=== PATIENT | male | born 1935 | race Caucasian/White ===

== ENCOUNTER 2017-08-21 20:34 | Emergency (ER) | payer MEDICARE, BC ==
[2017-08-21 20:46] VITALS: BP 203/100
--- NOTE | 2017-08-21 22:19 | EDM.PDOC ---
ED HPI GENERAL MEDICAL PROBLEM - General Chief Complaint: Cardiovascular Problem Stated Complaint: High BP Time Seen by Provider: 08/21/17 21:10 Source of Information: Reports: Patient, RN Notes Reviewed History Limitations: Reports: No Limitations - History of Present Illness INITIAL COMMENTS - FREE TEXT/NARRATIVE: 81 year old male presents to the ED today with concerns of high blood pressure. He has a history of hypertension but says he's been off medications for about 3 years. He says his htn was mild and required "a low dose" of medication. His BP normally runs around 140/70. Today, he's noticed his BP has been 160-190s over 70-80s. He denies headache, vision changes, chest pain, shortness of breath, lower extremity edema. For the past week, he has been experiencing rectal discomfort. He has a history of recurrent prostatitis and feels he is having a flare. He has been on ciprofloxacin for this in the past but says he experiencing severe GI side effects with this. The patient reports that he was initially evaluated in the walk-in clinic. He says they attempted to get him in with Dr. Ferreira but were unable to. He was instructed to come to the ED if his BP remains elevated. They did not treat his prostatitis. - Related Data Allergies Allergy/AdvReac Type Severity Reaction Status Date / Time No Known Allergies Allergy Verified 08/21/17 20:40 Home Meds: Home Meds Amoxicillin 500 mg PO TID #40 capsule 08/21/17 [Rx] Past Medical History Cardiovascular History: Reports: Hypertension Genitourinary History: Reports: Other (See Below) Other Genitourinary History: chronic prostatitis Social & Family History - Tobacco Use Smoking Status *Q: Never Smoker - Recreational Drug Use Recreational Drug Use: No ED ROS GENERAL - Review of Systems Review Of Systems: See Below Constitutional: Reports: No Symptoms. Denies: Fever, Chills, Diaphoresis HEENT: Reports: No Symptoms. Denies: Eye Pain, Vertigo, Vision Change Respiratory: Reports: No Symptoms. Denies: Shortness of Breath, Cough Cardiovascular: Reports: Blood Pressure Problem. Denies: Chest Pain, Dyspnea on Exertion, Edema, Lightheadedness, Palpitations GI/Abdominal: Reports: No Symptoms. Denies: Abdominal Pain, Nausea, Vomiting Neurological: Reports: No Symptoms. Denies: Confusion, Dizziness, Headache ED EXAM, GENERAL - Physical Exam Exam: See Below Exam Limited By: No Limitations General Appearance: Alert, WD/WN, No Apparent Distress Eye Exam: Bilateral Eye: EOMI, Normal Inspection, PERRL Respiratory/Chest: No Respiratory Distress, Lungs Clear, Normal Breath Sounds, No Accessory Muscle Use, Chest Non-Tender Cardiovascular: Normal Peripheral Pulses, Regular Rate, Rhythm, No Murmur GI/Abdominal: Normal Bowel Sounds, Soft, Non-Tender Extremities: Normal Inspection, Normal Range of Motion, Non-Tender, No Pedal Edema Neurological: Alert, Oriented, Normal Cognition, Normal Gait, No Motor/Sensory Deficits Skin Exam: Warm, Dry, Intact Course - Vital Signs Last Recorded V/S: Last Vital Signs Temp 97.3 F 08/21/17 20:41 Pulse 74 08/21/17 20:41 Resp 17 08/21/17 20:41 BP 203/100 H 08/21/17 20:41 Pulse Ox 100 08/21/17 20:41 - Orders/Labs/Meds Labs: Laboratory Tests 08/21/17 08/21/17 08/21/17 Range/Units 21:21 21:34 21:34 WBC 8.21 (4.23-9.07) K/mm3 RBC 5.07 (4.63-6.08) M/mm3 Hgb 14.8 (13.7-17.5) gm/L Hct 44.5 (40.1-51.0) % MCV 87.8 (79.0-92.2) fl MCH 29.2 (25.7-32.2) pg MCHC 33.3 (32.2-35.5) g/dl RDW Std Deviation 45.9 H (35.1-43.9) fL Plt Count 183 (163-337) K/mm3 MPV 9.7 (9.4-12.3) fl Neut % (Auto) 61.3 (34.0-67.9) % Lymph % (Auto) 26.4 (21.8-53.1) % Pershing % (Auto) 8.3 (5.3-12.2) % Eos % (Auto) 3.4 (0.8-7.0) Baso % (Auto) 0.5 (0.1-1.2) % Neut # (Auto) 5.03 (1.78-5.38) K/mm3 Lymph # (Auto) 2.17 (1.32-3.57) K/mm3 Pershing # (Auto) 0.68 (0.30-0.82) K/mm3 Eos # (Auto) 0.28 (0.04-0.54) K/mm3 Baso # (Auto) 0.04 (0.01-0.08) K/mm3 Sodium 143 (136-145) mEq/L Potassium 3.4 L (3.5-5.1) mEq/L Chloride 104 (98-107) mEq/L Carbon Dioxide 30 (21-32) mEq/L Anion Gap 12.4 (5-15) BUN 20 H (7-18) mg/dL Creatinine 1.1 (0.7-1.3) mg/dL Est Cr Clr Drug Dosing 50.08 mL/min Estimated GFR (MDRD) > 60 (>60) mL/min BUN/Creatinine Ratio 18.2 H (14-18) Glucose 104 (83-115) mg/dL Calcium 9.8 (8.5-10.1) mg/dL Total Bilirubin 0.9 (0.2-1.0) mg/dL AST 28 (15-37) U/L ALT 28 (16-63) U/L Alkaline Phosphatase 60 (46-116) U/L Total Protein 7.6 (6.4-8.2) g/dl Albumin 4.2 (3.4-5.0) g/dl Globulin 3.4 gm/dL Albumin/Globulin Ratio 1.2 (1-2) Urine Color Yellow (Yellow) Urine Appearance Clear (Clear) Urine pH 7.5 (5.0-8.0) Ur Specific [place] 1.020 (1.005-1.030) Urine Protein Negative (Negative) Urine Glucose (UA) Negative (Negative) Urine Ketones Negative (Negative) Urine Occult Blood Negative (Negative) Urine Nitrite Negative (Negative) Urine Bilirubin Negative (Negative) Urine Urobilinogen 0.2 (0.2-1.0) Ur Leukocyte Esterase Negative (Negative) Urine RBC Not seen (0-5) /hpf Urine WBC Not seen (0-5) /hpf Ur Epithelial Cells 0-5 (0-5) /hpf Amorphous Sediment Moderate H (NOT SEEN) /hpf Urine Bacteria Not seen (FEW) /hpf Urine Mucus Not seen (FEW) /hpf - Re-Assessments/Exams Free Text/Narrative Re-Assessment/Exam: Initial BP was 203/100. This quickly improved to 160/80s. CBC, CMP and UA are normal. Patient has no evidence of end organ damage. His elevated BP is likely related to acute pain, therefore I do not recommend that we restart his BP medication. Will start him on Amoxicillin for prostatitis. The patient is hoping to see his PCP tomorrow or early next week. He was educated on return precautions. Discharge instructions as documented. Departure - Departure Time of Disposition: 22:16 Disposition: Home, Self-Care 01 Condition: Good Clinical Impression: Elevated blood pressure reading, Rectal pain, History of prostatitis Prescriptions: Amoxicillin 500 mg PO TID #40 capsule Referrals: Arik Ferreira Jr, MD [Primary Care Provider] - Forms: ED Department Discharge Additional Instructions: Follow-up with Dr. Ferreira tomorrow or early next week Tylenol as needed for pain Continue to monitor your blood pressure at home Start Amoxicillin 500mg 3 times a day (every 8 hours) Return to ER with any new or worsening symptoms.
== END 2017-08-21 22:29 | disposition home or self-care (01) ==
LOC: JD.ED 20:34
DX: I10 Essential (primary) hypertension (principal); K62.89 Other specified diseases of anus and rectum; Z87.438 Personal history of other diseases of male genital organs
CPT/HCPCS: 36415; 80053; 81001; 85025; 99283

== ENCOUNTER 2017-10-03 10:55 | Emergency (ER) | payer MEDICARE, BC ==
--- NOTE | 2017-10-03 11:28 | EDM.PDOC ---
ED HPI GENERAL MEDICAL PROBLEM - General Chief Complaint: Genitourinary Problem Stated Complaint: UNABLE TO URINATE /PROSTRATE ISSUES Time Seen by Provider: 10/03/17 11:17 Source of Information: Reports: Patient, Family (spouse) - History of Present Illness INITIAL COMMENTS - FREE TEXT/NARRATIVE: 82-year-old male presents to the ED with chief complaint of inability to void. He states he thinks he voided a little bit after midnight and since that time no urine. Has a constant urge to go but cannot. Has a history of prostatitis recurrently but is never gone into retention before he has been tested recurrently for gastric cancer but no PSA elevations of her ever been identified. He has had follow-up with urology in the past. He did notice his urinary stream is slower yesterday. No fever no chills no backache. Appetite is good but he couldn't eat this morning because of his abdominal discomfort. He's been having diarrhea chronically as well. Onset: Today Onset Date: 10/03/17 (Thinks he last voided a bit after midnight.) Duration: Hour(s): Location: Reports: Abdomen (Unable to pass his water) Quality: Reports: Pressure Severity: Moderate Improves with: Reports: None (Current discomfort as 8 out of 10) Worsens with: Reports: Other Context: Reports: Other (History of recurrent prostatitis). Denies: Activity ( Worse with sitting or lying down. Better with standing), Exercise, Lifting, Sick Contact, Trauma Associated Symptoms: Reports: Other (Diarrhea.) Treatments OUTSIDE CUTTER: Reports: Other (see below) Bladder Pain Score (Numeric/FACES): 9 - Related Data Allergies Allergy/AdvReac Type Severity Reaction Status Date / Time No Known Allergies Allergy Verified 08/21/17 20:40 Home Meds: Home Meds Latanoprost [Xalatan 0.005% Ophth Soln] 2.5 ml EYEBOTH BEDTIME 10/03/17 [History ] Levofloxacin [Levaquin] 500 mg PO Q24H #13 tablet 10/03/17 [Rx] Lisinopril 20 mg PO DAILY 10/03/17 [History] Past Medical History Cardiovascular History: Reports: Hypertension Genitourinary History: Reports: Other (See Below) Other Genitourinary History: chronic prostatitis Social & Family History - Tobacco Use Smoking Status *Q: Never Smoker - Recreational Drug Use Recreational Drug Use: No - Living Situation & Occupation Living situation: Reports: Occupation: Retired ED ROS GENERAL - Review of Systems Review Of Systems: See Below Constitutional: Reports: Decreased Appetite (Today due to the abdominal discomfort). Denies: Fever, Chills, Malaise, Weakness, Weight Loss HEENT: Reports: Glasses Respiratory: Reports: No Symptoms Cardiovascular: Reports: No Symptoms Endocrine: Reports: No Symptoms GI/Abdominal: Reports: No Symptoms : Reports: No Symptoms, Urinary Retention Musculoskeletal: Reports: Joint Pain Skin: Reports: No Symptoms (Knees hips low back and neck at times.) Neurological: Reports: No Symptoms Psychiatric: Reports: No Symptoms Hematologic/Lymphatic: Reports: No Symptoms Immunologic: Reports: No Symptoms ED EXAM, RENAL/ - Physical Exam Exam: See Below Exam Limited By: No Limitations General Appearance: Alert, WD/WN, Mild Distress Eye Exam: Bilateral Eye: Normal Inspection Neck: Normal Inspection, Supple, Non-Tender, Full Range of Motion. No: Lymphadenopathy (L), Lymphadenopathy (R) Respiratory/Chest: No Respiratory Distress, Lungs Clear, Normal Breath Sounds, No Accessory Muscle Use Cardiovascular: Normal Peripheral Pulses, Regular Rate, Rhythm, No Edema, No Gallop, Systolic Murmur (Grade 2-3 pansystolic ejection murmur best heard at the left lower sternal border compatible with aortic stenosis.) GI/Abdominal: Normal Bowel Sounds, Soft, Non-Tender, Other (Abdomen is distended him for a lumbar likely with the uterine bladder palpable up to the umbilicus. It is moderately tender to palpation dull to percussion.) (Male) Exam: Circumcised Back Exam: Normal Inspection, Full Range of Motion. No: CVA Tenderness (L), CVA Tenderness (R) Extremities: Normal Inspection, Normal Range of Motion, Non-Tender, No Pedal Edema, Other Neurological: Alert, Oriented (Mild osteophytic changes knees and hips.), CN II- XII Intact, Normal Cognition Psychiatric: Normal Affect, Normal Mood Skin Exam: Warm, Dry, Intact, Normal Color, No Rash Course - Vital Signs Last Recorded V/S: Last Vital Signs Temp 36.1 C 10/03/17 11: Pulse 92 10/03/17 11:17 Resp 20 10/03/17 11:17 BP 196/114 H 10/03/17 11:17 Pulse Ox 97 10/03/17 11:17 - Orders/Labs/Meds Orders: Active Orders 24 hr Category Date Time Status Bladder Scan [RC] ONETIME Care 10/03/17 11:23 Inactive Insert Conway Catheter [Insert Urinary Catheter] [OM.PC] Care 10/03/17 11:30 Ordered Q24H Urinary Catheter Assessment [RC] ASDIRECTED Care 10/03/17 11:24 Active Labs: Laboratory Tests 10/03/17 Range/Units 11:50 Urine Color Yellow (Yellow) Urine Appearance Clear (Clear) Urine pH 7.5 (5.0-8.0) Ur Specific [place] 1.025 (1.005-1.030) Urine Protein Negative (Negative) Urine Glucose (UA) Negative (Negative) Urine Ketones Negative (Negative) Urine Occult Blood Trace-intact H (Negative) Urine Nitrite Negative (Negative) Urine Bilirubin Negative (Negative) Urine Urobilinogen 0.2 (0.2-1.0) Ur Leukocyte Esterase Negative (Negative) Urine RBC 0-5 (0-5) /hpf Urine WBC 0-5 (0-5) /hpf Ur Epithelial Cells 0-5 (0-5) /hpf Amorphous Sediment Few H (NOT SEEN) /hpf Urine Bacteria Not seen (FEW) /hpf Urine Mucus Not seen (FEW) /hpf Meds: Medications Discontinued Medications Generic Name Dose Route Start Last Admin Trade Name Freq PRN Reason Stop Dose Admin Levofloxacin 500 mg 10/03/17 12:57 10/03/17 13:31 Levaquin PO 10/03/17 12:58 500 mg ONETIME ONE Administration Lidocaine HCl 10 ml 10/03/17 11:29 10/03/17 11:50 Xylocaine 2% Jelly MUCMEM 10/03/17 11:30 10 ml ONETIME ONE Administration - Radiology Interpretation Free Text/Narrative:: 82-year-old male presents to the ED with urinary retention last voided little bit after midnight. Noted urinary stream is less strong yesterday. History of recurrent chronic prostatitis. He has never gone into full retention in the past. Clinically his bladder is up to his umbilicus and contains between 809, 000 mils. Plan bladder scan to be done. In gait tipped Conway catheter be placed with plan to leave it there for 3-5 days. Urinalysis to be obtained. - Re-Assessments/Exams Free Text/Narrative Re-Assessment/Exam: 10/03/17 12:20 Conway catheter placed and greater than 1300 mils of urine obtained. There is the occasional blood clot appreciated and a lot of mucus shreds. Urinalysis is pending. 10/03/17 12:58 urinalysis came back negative. I will place him on Levaquin however 500 mg once daily for 14 days for presumed prostatitis. Conway catheter remain in place over the weekend and he is to follow-up in clinic on Friday to have the Conway catheter removed. Departure - Departure Time of Disposition: 12:58 Disposition: Home, Self-Care 01 Condition: Fair Clinical Impression: Acute urinary retention Prostatitis, unspecified Qualifiers: Prostatitis type: acute Qualified Code(s): N41.0 - Acute prostatitis - Discharge Information Prescriptions: Levofloxacin [Levaquin] 500 mg PO Q24H #13 tablet Instructions: Prostatitis, [id number], Acute Urinary Retention, Male, Easy-to -Read Referrals: Arik Ferreira Jr, MD [Primary Care Provider] - Forms: ED Department Discharge Additional Instructions: Evaluation in the emergency room today in regards to acute urinary retention i.e. inability to pass her water. A Conway catheter was placed and greater than 1300 mils of urine were identified in the bladder. Urinalysis does not show any signs of infection. As you indicated you pad prostatitis on many occasions in the past as well as many the PSA evaluations and ruled out any prostate cancer. Presumably therefore you have a recurrence of prostatitis which narrowed the tube that allows water to pass through the prostate from the bladder. This caused her bladder to fill with urine and you're unable to void. The plan is to leave the Conway catheter in place for the next 3 days. Please make him prone to see Dr. Ferreira in the clinic in Friday to have the Conway catheter removed. In the meantime you're to take antibiotic Levaquin 500 milligrams once daily to complete 14 days of therapy. First tablets provided in the ED next tablet would be due tomorrow at noon. Return to medical care if you develop any fever chills nausea or vomiting. - My Orders Last 24 Hours: My Active Orders 10/03/17 11:23 Bladder Scan [RC] ONETIME 10/03/17 11:24 Urinary Catheter Assessment [RC] ASDIRECTED 10/03/17 11:30 Insert Conway Catheter [Insert Urinary Catheter] [OM.PC] Q24H - Assessment/Plan Last 24 Hours: My Active Orders 10/03/17 11:23 Bladder Scan [RC] ONETIME 10/03/17 11:24 Urinary Catheter Assessment [RC] ASDIRECTED 10/03/17 11:30 Insert Conway Catheter [Insert Urinary Catheter] [OM.PC] Q24H
[2017-10-03 11:29] VITALS: BP 196/114
[2017-10-03] MEDS ORDERED: Lidocaine 2% Jelly 10 ML Urojet MUCMEM ONE (11:29)
[2017-10-03] MEDS ORDERED: Levofloxacin 500 MG Tab PO ONE (12:57)
== END 2017-10-03 13:35 | disposition home or self-care (01) ==
LOC: JD.ED 10:55
DX: N41.0 Acute prostatitis (principal); R33.8 Other retention of urine
CPT/HCPCS: 51702; 81001; 99284; A9270; 99283

== ENCOUNTER 2017-11-30 15:22 | Emergency (ER) | payer MEDICARE, BC ==
[2017-11-30 15:42] VITALS: BP 179/91
[2017-11-30] MEDS ORDERED: Lidocaine 2% Jelly 10 ML Urojet MUCMEM ONE (16:06)
[2017-11-30] MEDS ORDERED: Lidocaine 2% Jelly 10 ML Urojet ONE (16:12)
[2017-11-30] MEDS ORDERED: Doxycycline 100 MG Cap PO ONE ×3 (17:17→17:18)
--- NOTE | 2017-11-30 17:17 | EDM.PDOC ---
ED HPI GENERAL MEDICAL PROBLEM - General Chief Complaint: Genitourinary Problem Stated Complaint: UNABLE TO URINATE Time Seen by Provider: 11/30/17 16:14 Source of Information: Reports: Patient, Old Records (recent ER visit) History Limitations: Reports: No Limitations - History of Present Illness INITIAL COMMENTS - FREE TEXT/NARRATIVE: 82-year-old male presents for evaluation and treatment of difficulty urinating. Patient reports that he first developed dribbling this morning. He states about 3 hours ago he completely stopped urinating altogether. He is reporting pain and pressure in his bladder. This has occurred on at least one other occasion. He was seen in the ER in October for this. He was put on Levaquin and given a Conway catheter for 3 or 4 days. Patient reports he is scheduled to see urology, however, due to conflicts with his appointment has been pushed back until December. Patient reports that he has had chronic prostatitis. He states that he does not feel that prostatitis is causing problems today. He is also appreciated that his urine stream is not a linear and will often spray in every direction. Lower Abdomen Pain Score (Numeric/FACES): 4 - Related Data Allergies Allergy/AdvReac Type Severity Reaction Status Date / Time No Known Allergies Allergy Verified 11/30/17 15:41 Home Meds: Home Meds Latanoprost [Xalatan 0.005% Ophth Soln] 2.5 ml EYEBOTH BEDTIME 10/03/17 [History ] Lisinopril 20 mg PO DAILY 10/03/17 [History] Chlorthalidone 25 mg PO DAILY 11/30/17 [History] Doxycycline [Vibramycin] 100 mg PO Q12HR #17 cap 11/30/17 [Rx] Past Medical History Cardiovascular History: Reports: Hypertension Genitourinary History: Reports: Prostate Disorder, Other (See Below) Other Genitourinary History: chronic prostatitis - Past Surgical History HEENT Surgical History: Reports: Tonsillectomy Social & Family History - Tobacco Use Smoking Status *Q: Never Smoker - Caffeine Use Caffeine Use: Reports: None - Recreational Drug Use Recreational Drug Use: No - Living Situation & Occupation Living situation: Reports: Occupation: Retired ED ROS GENERAL - Review of Systems Review Of Systems: See Below Constitutional: Denies: Fever, Chills GI/Abdominal: Denies: Nausea, Vomiting : Reports: Pain, Urinary Retention. Denies: Dysuria ED EXAM, RENAL/ - Physical Exam Exam: See Below Exam Limited By: No Limitations General Appearance: Alert, WD/WN, No Apparent Distress Respiratory/Chest: No Respiratory Distress, Lungs Clear, Normal Breath Sounds Cardiovascular: Normal Peripheral Pulses, Regular Rate, Rhythm, No Murmur GI/Abdominal: Normal Bowel Sounds, Soft, Non-Tender Neurological: Alert, Oriented, Normal Cognition Psychiatric: Normal Affect, Normal Mood Skin Exam: Warm, Dry, Normal Color Course - Vital Signs Last Recorded V/S: Last Vital Signs Temp 36.4 C 11/30/17 15:39 Pulse 87 11/30/17 15:39 Resp 16 11/30/17 15:39 BP 179/91 H 11/30/17 15:39 Pulse Ox 95 11/30/17 15:39 - Orders/Labs/Meds Labs: Laboratory Tests 11/30/17 Range/Units 16:30 Urine Color Yellow (Yellow) Urine Appearance Clear (Clear) Urine pH 7.0 (5.0-8.0) Ur Specific [place] 1.015 (1.005-1.030) Urine Protein Negative (Negative) Urine Glucose (UA) Negative (Negative) Urine Ketones Negative (Negative) Urine Occult Blood 2+ H (Negative) Urine Nitrite Negative (Negative) Urine Bilirubin Negative (Negative) Urine Urobilinogen 0.2 (0.2-1.0) Ur Leukocyte Esterase Negative (Negative) Urine RBC 10-20 H (0-5) /hpf Urine WBC 0-5 (0-5) /hpf Ur Epithelial Cells 0-5 (0-5) /hpf Urine Bacteria Rare (FEW) /hpf Urine Mucus Not seen (FEW) /hpf Meds: Medications Discontinued Medications Generic Name Dose Route Start Last Admin Trade Name Freq PRN Reason Stop Dose Admin Doxycycline Hyclate 100 mg 11/30/17 17:17 11/30/17 17:42 Vibramycin PO 11/30/17 17:18 100 mg ONETIME ONE Administration Doxycycline Hyclate 100 mg 11/30/17 17:17 11/30/17 17:42 Vibramycin PO 11/30/17 17:18 100 mg ONETIME ONE Administration Doxycycline Hyclate 100 mg 11/30/17 17:18 11/30/17 17:42 Vibramycin PO 11/30/17 17:19 100 mg ONETIME ONE Administration Lidocaine HCl 10 ml 11/30/17 16:06 11/30/17 16:14 Xylocaine 2% Jelly MUCMEM 11/30/17 16:07 10 ml ONETIME ONE Administration Lidocaine HCl Confirm 11/30/17 16:12 11/30/17 16:14 Xylocaine 2% Jelly Administered 11/30/17 16:13 Not Given Dose 10 ml .ROUTE .[facility] ONE - Re-Assessments/Exams Free Text/Narrative Re-Assessment/Exam: 11/30/17 17:10 Nursing staff was able to place a catheter. Reportedly there was difficulty placing the catheter as there is possibly a urethral stricture. UA returned with 2+ blood. I discussed this with the patient. He does not have any infection today. He states that in the past when this occurred his symptoms have resolved with antibiotics and a Conway catheter. He is to follow-up with his primary care provider this week for removal of the catheter. Follow-up with urology as planned. Discharge instructions as documented. Departure - Departure Time of Disposition: 17:14 Disposition: Home, Self-Care 01 Condition: Fair Clinical Impression: Acute urinary retention - Discharge Information Prescriptions: Doxycycline [Vibramycin] 100 mg PO Q12HR #17 cap Instructions: Acute Urinary Retention, Male, [id number] Referrals: Arik Ferreira Jr, MD [Primary Care Provider] - Forms: ED Department Discharge Additional Instructions: Follow-up with PCP Friday or Friday for cath removal. Doxycycline 1 cap PO bid x 10 days. Follow-up with urology as soon as you are able to. Please return to the ER should your symptoms change or worsen.
== END 2017-11-30 17:53 | disposition home or self-care (01) ==
LOC: JD.ED 15:22
DX: R33.9 Retention of urine, unspecified (principal); I10 Essential (primary) hypertension; Z79.899 Other long term (current) drug therapy
CPT/HCPCS: 51702; 81001; 87086; 99284; A9270; 99283

== ENCOUNTER 2022-12-01 14:09 | Emergency (ER) | payer MEDICARE, BC ==
[2022-12-01 17:19] VITALS: BP 150/87; PULSE 66
== END 2022-12-01 17:17 | disposition home or self-care (01) ==
LOC: JD.ED 14:09
DX: R79.89 Other specified abnormal findings of blood chemistry (principal); I10 Essential (primary) hypertension; Z79.899 Other long term (current) drug therapy; Z86.16 Personal history of COVID-19
CPT/HCPCS: 36415; 71045; 71045-26; 80053; 83735; 83880; 84484; 85025; 85610; 85730; 93005; 99284